=== PATIENT | male | born 1990 | race Caucasian/White ===

== ENCOUNTER 2018-03-12 22:42 | Emergency (ER) | END 2018-03-13 01:17 | disposition home or self-care (01) ==

== ENCOUNTER 2018-10-15 19:01 | Emergency (ER) | payer MEDICAID ==
[~2018-10-15] VITALS: Ht 170.2 cm; Wt 72.9 kg
[~2018-10-15 19:01] MED LIST: IBUP-1542 PO
[2018-10-15 19:04] VITALS: Ht 170.2 cm; Wt 72.9 kg
--- NOTE | 2018-10-15 19:16 | ERD ---
ER Documentation Chief Complaint Chief Complaint L forearm pain near elbow after fall from skateboard HPI 28-year-old male, right-handed, presents to the emergency department, complaining of left elbow pain, after sustaining a mechanical fall while the patient was riding an electric scooter approximately 1 hour prior to arrival. The pain is dull, constant, worsened by elbow movement, 10/18. The patient denies distal weakness, numbness or tingling. ROS All systems reviewed and are negative except as per history of present illness. Medications Home Meds Active Scripts Acetaminophen* (Tylenol*) 325 Mg Tablet, 2 TAB PO Q6 PRN for PAIN AND OR ELEVATED TEMP, #20 TAB Prov:RUBI ANGLIN MD 10/15/18 Ibuprofen* (Motrin*) 400 Mg Tab, 400 MG PO Q6H PRN for PAIN AND OR ELEVATED TEMP, #20 TAB Prov:RUBI ANGLIN MD 10/15/18 Ibuprofen* (Motrin*) 600 Mg Tab, 600 MG PO Q6H PRN for PAIN AND OR ELEVATED TEMP, #30 TAB Prov:CHIVO SCOTT MD 03/13/18 Allergies Allergies: Coded Allergies: No Known Allergy (Unverified , 03/12/18) PMhx/Soc Medical and Surgical Hx: pt denies Medical Hx Hx Alcohol Use: No Hx Substance Use: No Hx Tobacco Use: No FmHx Family History: No diabetes, No coronary disease Physical Exam Vitals Vital Signs Date Temp Pulse Resp B/P (MAP) Pulse Ox O2 O2 Flow FiO2 Time Delivery Rate 10/15/18 98.6 69 24 125/76 100 19:04 (92) Physical Exam Const: No acute distress Head: Atraumatic Eyes: Normal Conjunctiva ENT: Normal External Ears, Nose and Mouth. Neck: Full range of motion. No meningismus. Resp: Clear to auscultation bilaterally Cardio: Regular rate and rhythm, no murmurs Abd: Soft, non tender, non distended. Normal bowel sounds Skin: No petechiae or rashes Back: No midline or flank tenderness Ext: Left elbow: Normal inspection, tenderness to palpation of the lateral epicondyle. Decreased range of motion due to pain. Distal neurovascular exam intact. Neur: Awake and alert Psych: Normal Mood and Affect Results 24 hrs Current Medications Medications Dose Sig/Jessica Start Time Status Last (Trade) Ordered Route PRN Stop Time Admin Dose Reason Admin 1 tab ONCE ONCE 10/15/18 DC 10/15/18 Acetaminophen PO 19:30 10/15/18 19:22 / 19:31 Hydrocodone Bitart (Boelus (5/325)) Ibuprofen 600 mg ONCE ONCE 10/15/18 DC 10/15/18 (Motrin) PO 19:30 10/15/18 19:21 19:31 325 mg ONCE ONCE 10/15/18 DC 10/15/18 Acetaminophen PO 19:30 10/15/18 19:22 (Tylenol 19:31 Tab) Procedures/MDM No red flags. Differential diagnosis include but not limited to: Elbow sprain/strain, ligament injury, epicondylitis, gout, arthritis; low suspicion for fracture, dislocation, septic arthritis. Neurovascular exam grossly intact. no clinical findings suggestive of acute infectious process, no deformity, no rashes. Pertinent Data: X-rays: No fracture or dislocation Physical examination and clinical presentation consistent most likely with left elbow contusion. Treatment options, results and clinical impression discussed with patient who agrees with management. The patient is stable to be treated outpatient and will be discharged home with recommendations for ice, rest and NSAIDs 3 times daily for 5 days and close monitoring. The patient was instructed to follow up with the primary care provider in the next 48h. If symptoms persist, worsen or new symptoms develop, then patient should return to the ED immediately. Instructions explained and given to patient with acknowledgment and demonstrated understanding. Disclaimer: Inadvertent spelling and grammatical errors are likely due to EHR/dictation software use and do not reflect on the overall quality of patient care. Also, please note that the electronic time recorded on this note does not necessarily reflect the actual time of the patient encounter. Departure Diagnosis: Primary Impression: Contusion of elbow, left Condition: Stable Patient Instructions: Contusion, Elbow Additional Instructions: Muchas shan por [facility] para [place] servicio. Esperamos que en [place] visita a la solitario de emergencia [place] problema medico haya sido solucionado y que se sienta mucho mejor. Para estar seguros que [place] mejoria sigue en proceso, le pedimos el favor de hacer anayeli payal de seguimiento medico con [place] doctor primario en los proximos 2-4 patel. Lleve con usted estos documentos y las medicinas recetadas. Si mega sintomas empeoran, NO SE ESPERE, por favor regrese a solitario de emergencia INMEDIATAMENTE. En carmel que usted no tenga un mdico de atencin primaria: Llame al mdico o clnica comunitaria de referencia que aparece abajo jenni las horas de consultorio para hacer anayeli payal para que le vean. CLINICAS: [facility] [phone] [id number] [facility] [phone] [facility] [phone] [address] [facility] [phone] [facility] [phone] [id number] [facility]. [phone] RUBI MCCLAIN MD Oct 15, 2018 19:16
[2018-10-15] MEDS ORDERED: ACETAMINOPHEN 325 MG TAB PO ONE (19:30)
[2018-10-15] MEDS ORDERED: HYDROCODONE/APAP (5/325) TAB PO ONE (19:30)
[2018-10-15] MEDS ORDERED: IBUPROFEN 600 MG TAB PO ONE (19:30)
[2018-10-15] MEDS ORDERED: ACET325T33 PO (20:28)
[2018-10-15] MEDS ORDERED: IBUP-1561 PO (20:28)
[2018-10-15 20:43] VITALS: BP 135/66; PULSE 60; RESP 18
== END 2018-10-15 20:44 | disposition home or self-care (01) ==
LOC: FTE 19:01
DX: S50.02XA Contusion of left elbow, initial encounter (principal); V00.131A Fall from skateboard, initial encounter
CPT/HCPCS: 73080; Z7502; Z7610